=== PATIENT | male | born 1990 | race Hispanic/Latino ===

== ENCOUNTER 2019-08-17 18:17 | Emergency (ER) | payer OTHER, SELFPAY ==
[2019-08-17 18:25] VITALS: BP 132/93; PULSE 79; RESP 17; TEMP 36.9; O2SAT 99
[2019-08-17 18:26] VITALS: BP 138/78; PULSE 72; RESP 20; TEMP 37; O2SAT 99
--- NOTE | 2019-08-17 18:32 | ECG_ITS ---
Measurements Intervals [place] Rate: 72 P: 44 ID: [id number] QRS: -24 QRSD: 93 T: 7 QT: 351 QTc: 386 Interpretive Statements SINUS RHYTHM WITH SINUS ARRHYTHMIA NORMAL ECG Electronically Signed On 08-18-2019 6:58:53 CDT by Marshall Strickland D.O.
--- NOTE | 2019-08-17 19:14 | ED.ABDPAIN ---
HPI - Abdominal Pain General Chief Complaint: Abdominal Pain Stated Complaint: epigastric pain Time Seen by Provider: 08/17/19 18:56 Source: patient Mode of arrival: ambulatory Limitations: language barrier (patient is bruneian speaking, interpreting) History of Present Illness HPI narrative: This patient is a 29 yo male who presents with c/o epigastric abdominal pain. PAtient reported that he has suffered heartburn burning chest pain for a long time but he developed epigastric abdominal pain yesterday. He describes this new pain has intermittent sharp pain that is nonradiating. He denies having pain currently but states he had pain prior to arrival that seemed worsen with moving and breathing. He is taking tums and prevacid for his heart burn. HE denies associated shortness of breath, fever, cough, nausea, vomiting, diarrhea or weakness. His last Bowel movement was yesterday and he states it was normal. Related Data Allergies Allergy/AdvReac Type Severity Reaction Status Date / Time No Known Allergies Allergy Verified 08/17/19 18:28 Review of Systems Review of Systems: All systems reviewed & are unremarkable except as noted in HPI and below Constitutional: Constitutional: Denies chills, Denies fever(s) and Denies weakness Cardiovascular: Cardiovascular: Reports chest pain, Denies rapid heart rate, Denies radiating jaw, neck or arm pain and Denies slow heart rate Respiratory: Respiratory: Denies cough and Denies dyspnea Gastrointestinal: Gastrointestinal: Reports abdominal pain, Reports heartburn, Denies diarrhea, Denies nausea and Denies vomiting Integumentary/Breasts: Skin/Breast: Denies rash PMFSH Past Medical History Medical History (Updated 08/18/19 @ 00:00 by Background Daemon) Patient denies medical problems Surgical History Surgical History (Updated 08/17/19 @ 19:15 by Dorina Tam MD) No pertinent past surgical history Social History Social History (Updated 08/17/19 @ 19:16 by Dorina Tam MD) Smoking status: Never smoker Alcohol intake: current Alcohol use details: socially Substance use: never Gender identity (if verbalized by the patient): Male Comments denies family history Exam Narrative: Exam Narrative: GENERAL: Well-appearing, well-nourished, and in no acute distress. HEAD: Normocephalic, atraumatic EYES: PERRLA and EOMI, conjunctiva clear without discharge NECK: Supple, without lymphadenopathy or mass RESPIRATORY: No respiratory distress, Airway patent, Respirations non-labored, Clear to auscultation without rales, rhonchi or wheeze HEART: Regular rate and rhythm. No murmur heard. Normal peripheral pulses. ABDOMEN: Soft, nontender, nondistended, normal active bowel sounds. No masses. No rebound or guarding, No organomegaly. EXTREMITIES: No edema, normal strength with full range of motion. SKIN: Warm, dry, normal color without rash NEURO: Alert and oriented x3. CN 2-12 grossly intact. No focal deficits. PSYCH: Normal mood and affect. Course Reevaluation(s) Reevaluation #1: Patient has no pain. I discussed test are unremarkable. This pain appears to be GI related and not cardiac or pulmonary. HE is PERC negative. Date: 08/17/19 Time: 21:18 Vital Signs Vital signs: Vital Signs Temperature 98.5 F 08/17/19 18:25 Pulse Rate 79 08/17/19 18:25 Respiratory Rate 17 08/17/19 18:25 Blood Pressure 132/93 H 08/17/19 18:25 Pulse Oximetry 99 08/17/19 18:25 Temperature 98.6 F 08/17/19 18:26 Pulse Rate 75 08/17/19 21:13 Respiratory Rate 20 08/17/19 21:13 Blood Pressure 130/68 08/17/19 21:13 Pulse Oximetry 99 08/17/19 21:13 MDM - Abdominal Pain Lab Data Attestation: I reviewed the patient's lab results. Result diagrams: 08/17/19 19:26 08/17/19 19:26 Labs: Lab Results 08/17/19 08/17/19 Range/Units 19:26 19:26 WBC 10.6 H (4.5-10.0) K/mm3 RBC 5.05 (4.6-6.20) M
[2019-08-17 19:33] LABS: Basophils Percent Auto 0.3 % (0.2-1.2); Eosinophils Absolute Auto 0.2 K/mm3 (0-0.3); Eosinophils Percent Auto 1.6 % (0-4.4); Hematocrit 41.4 % (42.0-52.0); Hemoglobin 14.2 g/dL (14.0-18.0); Immature Granulocyte Absolute 0.03 K/mm3 (0.00-0.031); Immature Granulocyte Percent A 0.3 % (0-0.5); Lymphocytes Absolute Auto 1.87 K/mm3 (0.9-3.2); Lymphocytes Percent Auto 17.6 % (18.3-44.2); Mean Corpuscular HGB Conc 34.3 g/dl (32-36); Mean Corpuscular Hemoglobin 28.1 pg (26-34); Mean Platelet Volume 11.6 fl (7.4-10.4); Monocytes Absolute Auto 0.8 K/mm3 (0.1-0.6); Monocytes Percent Auto 7.5 % (2.6-8.5); Neutrophils Absolute Auto 7.7 K/mm3 (1.3-6.7); Neutrophils Percent Auto 72.7 % (45.5-73.1); Platelet Count Result 274 k/mm3 (150-375); Red Blood Count 5.05 M/mm3 (4.6-6.20); White Blood Count 10.6 K/mm3 (4.5-10.0)
[2019-08-17 19:45] LABS: Alanine Aminotransferase 19 U/L (4-50); Albumin Level 4.7 g/dL (3.5-5.1); Alkaline Phosphatase 75 U/L (38-126); Aspartate Amino Transferase 29 U/L (17-59); Bilirubin,Total 0.3 mg/dL (0.2-1.3); Blood Urea Nitrogen 12 mg/dL (9-20); Calcium 9.4 mg/dL (8.4-10.2); Carbon Dioxide 24 mmol/L (22-30); Chloride 104 mmol/L (98-107); Estimated CRCL calculation 111 ml/min; Estimated Glomerular Filt Rate > 60; Glucose 86 mg/dL (75-110); Lipase 113 U/L (23-300); Potassium 3.9 mmol/L (3.4-5.0); Sodium 138 mmol/L (137-145)
[2019-08-17 19:55] LABS: Troponin I < 0.012 ng/mL (0.000-0.034)
[2019-08-17 20:05] VITALS: PULSE 76; RESP 20; O2SAT 100
[2019-08-17 21:13] VITALS: BP 130/68; PULSE 75; RESP 20; O2SAT 99
== END 2019-08-17 21:33 | disposition home or self-care (01) ==
PROVIDERS: Emergency Provider General Practice; PCP Physician Assistant
DX: R10.13 Epigastric pain (principal)
CPT/HCPCS: 36415; 80053; 83690; 84484; 85025; 93005; 99284